=== PATIENT | female | born 1990 | race Caucasian/White ===

== ENCOUNTER 2017-09-02 19:59 | Inpatient (IN) | payer OTHER ==
[~2017-09-02] VITALS: Ht 160 cm; Wt 69.1 kg
[2017-09-02 20:30] VITALS: BP 130/74
[2017-09-02] MEDS ORDERED: PREN1TAB60 PO (21:04)
[2017-09-02] MEDS ORDERED: folic acid PO (21:04)
[2017-09-02 21:11] VITALS: BP 130/74
[2017-09-02 21:59] LABS: AMNI OBC PASS; AMNISURE POSITIVE (NEGATIVE)
[2017-09-02] MEDS ORDERED: AMPICILLIN 2 GM in SODIUM CHLORIDE 0.9% 100 ML IVPB STA (22:07)
[2017-09-02] MEDS ORDERED: OXYTOCIN 30U/ 0.9% NaCL 500ML 500 ML IV ONE (22:07)
[2017-09-02] MEDS ORDERED: ONDANSETRON 2MG/ML, 2ML IVPush PRN (22:30)
[2017-09-02] MEDS ORDERED: CALCIUM CARBONATE 500 MG TAB.CHEW PO PRN (22:30)
[2017-09-02] MEDS ORDERED: FENTANYL PF 100 MCG/2ML IV PRN (22:30)
[2017-09-02] MEDS ORDERED: FENTANYL PF 100 MCG/2ML IVPush PRN (22:30)
[2017-09-02 22:38] LABS: HEMATOCRIT 38.4 % (34.6-47.8); HEMOGLOBIN 13.1 g/dL (11.7-16.4); WHITE BLOOD COUNT 16.6 x10^3/uL (3.4-10)
[2017-09-02] MEDS: LACTATED RINGERS 1,000 ML IV SCH (22:52)
[2017-09-03] MEDS ORDERED: OXYTOCIN 30U/ 0.9% NaCL 500ML 500 ML IV PRN (00:12)
[2017-09-03] MEDS ORDERED: OXYTOCIN 30U/ 0.9% NaCL 500ML 500 ML ONE ×2 (00:30→23:25)
[2017-09-03] MEDS ORDERED: LIDOCAINE 1%, 20ML ONE ×2 (00:30→13:05)
[2017-09-03] MEDS ORDERED: MISOPROSTOL 200 MCG TABLET ONE (00:31)
[2017-09-03] MEDS: AMPICILLIN 1 GM in SODIUM CHLORIDE 0.9% 50 ML IVPB SCH ×4 (03:30→19:42)
[2017-09-03] MEDS: D5%-LACTATED RINGERS 1,000 ML IV SCH ×2 (06:07→18:22)
[2017-09-03 07:39] VITALS: BP 125/66
[2017-09-03] MEDS ORDERED: FENTANYL/BUPIV./NS/PF 250 ML EPIDCONT SCH ×4 (12:15→18:32)
[2017-09-03] MEDS ORDERED: LACTATED RINGERS 1,000 ML IV SCH ×3 (12:15→18:31)
[2017-09-03] MEDS ORDERED: LACTATED RINGERS 1,000 ML IVBOLUS PRN ×4 (12:30→19:00)
[2017-09-03] MEDS ORDERED: FENTANYL/BUPIV./NS/PF 250 ML EPIDCONT ONE (13:03)
[2017-09-03] MEDS: LACTATED RINGERS 1,000 ML IV SCH ×2 (17:51→18:32)
[2017-09-03] MEDS ORDERED: NALOXONE 0.4 MG/ML, 1ML IVPush PRN (18:30)
[2017-09-03] MEDS ORDERED: EPHEDRINE 50 MG/ML, 1ML IVPush PRN (18:30)
[2017-09-03] MEDS ORDERED: LACTATED RINGERS 1,000 ML INTUTE PRN (19:30)
[2017-09-03] MEDS ORDERED: LACTATED RINGERS 1,000 ML INTUTE SCH (19:30)
[2017-09-03] MEDS ORDERED: ONDANSETRON 2MG/ML, 2ML ONE (21:17)
[2017-09-03] MEDS ORDERED: OXYcodone/APAP 5/325MG TABLET PO PRN (22:00)
[2017-09-03] MEDS ORDERED: MISOPROSTOL 200 MCG TABLET PR PRN (22:00)
[2017-09-03] MEDS ORDERED: ONDANSETRON 2MG/ML, 2ML IV PRN (22:00)
[2017-09-03] MEDS ORDERED: OXYcodone/APAP 5/325MG TABLET ONE (23:15)
[2017-09-03] MEDS: OXYTOCIN 30U/ 0.9% NaCL 500ML 500 ML IV SCH (23:27)
[2017-09-04 01:45] VITALS: BP 117/70
[2017-09-04] MEDS: LACTATED RINGERS 1,000 ML IV SCH ×2 (02:32→10:32)
[2017-09-04 05:20] VITALS: BP 112/68
[2017-09-04] MEDS: OXYcodone/APAP 5/325MG TABLET PO PRN ×3 (05:26→20:13)
[2017-09-04] MEDS: IBUPROFEN 600 MG TABLET PO PRN ×3 (05:26→20:14)
[2017-09-04 07:20] LABS: HEMATOCRIT 32.6 % (34.6-47.8); HEMOGLOBIN 11.1 g/dL (11.7-16.4); WHITE BLOOD COUNT 23.5 x10^3/uL (3.4-10)
[2017-09-04] MEDS: OXYTOCIN 30U/ 0.9% NaCL 500ML 500 ML IV SCH ×2 (07:34→17:34)
[2017-09-04 07:45] LABS: DIFF TOTAL CELLS COUNTED 100 CELL DIFF
[2017-09-04 08:10] LABS: HYPOCHROMIA 1+; VERIFY COUNTS? YES
[2017-09-04 08:15] VITALS: BP 102/57
[2017-09-04] MEDS: DOCUSATE 100 MG CAPSULE PO PRN ×2 (11:45→20:14)
[2017-09-04] MEDS: PRENATAL VIT/IRON/FA 1 EACH TABLET PO SCH (11:45)
[2017-09-04 20:00] VITALS: BP 113/73
[2017-09-04] MEDS ORDERED: IBUP-1222 PO (22:12)
[2017-09-04] MEDS ORDERED: OXYC-302 PO (22:12)
[2017-09-05] MEDS: IBUPROFEN 600 MG TABLET PO PRN ×2 (02:48→21:01)
[2017-09-05] MEDS: OXYcodone/APAP 5/325MG TABLET PO PRN ×4 (02:48→21:01)
[2017-09-05 07:53] VITALS: BP 114/69
[2017-09-05] MEDS: DOCUSATE 100 MG CAPSULE PO PRN ×2 (09:25→21:00)
[2017-09-05] MEDS: PRENATAL VIT/IRON/FA 1 EACH TABLET PO SCH (09:25)
[2017-09-05 20:15] VITALS: BP 118/78
== END 2017-09-05 22:44 | disposition home or self-care (01) | DRG 775 ==
LOC: LDOP 19:59 → LDIP 22:15 → 2NW 09-04 01:30
PROVIDERS: ADMIT Obstetrics & Gynecology; ATTEND Obstetrics & Gynecology
PROC: 10E0XZZ Delivery of Products of Conception, External Approach (ICD-10-PCS; principal; 2017-09-02)
PROC: 3E0P3VZ Introduction of Hormone into Female Reproductive, Percutaneous Approach (ICD-10-PCS; 2017-09-02)
PROC: 0W8NXZZ Division of Female Perineum, External Approach (ICD-10-PCS; 2017-09-02)
PROC: 3E0R3BZ Introduction of Anesthetic Agent into Spinal Canal, Percutaneous Approach (ICD-10-PCS; 2017-09-02)
PROC: 00HU33Z Insertion of Infusion Device into Spinal Canal, Percutaneous Approach (ICD-10-PCS; 2017-09-02)
PROC: 0HQ9XZZ Repair Perineum Skin, External Approach (ICD-10-PCS; 2017-09-02)
DX: O69.81X0 Labor and delivery complicated by cord around neck, without compression, not applicable or unspecified (principal); O70.9 Perineal laceration during delivery, unspecified; Z3A.38 38 weeks gestation of pregnancy; Z37.0 Single live birth
CPT/HCPCS: 36415; 84112; 85025; 86850; 86900; 89060; J0290; J2405; J3490; J2590; J7120; J7121; Q0114

== ENCOUNTER 2020-01-12 08:25 | Emergency (ER) | payer OTHER ==
[~2020-01-12] VITALS: Ht 154.9 cm; Wt 66.8 kg
[~2020-01-12 08:25] MED LIST: IBUP-1222 PO; OXYC-302 PO; PREN1TAB60 PO; folic acid PO
--- NOTE | 2020-01-12 08:40 | NUR ---
PT BROUGHT BACK FROM TRIAGE WITH CHIEF COMPLAINT OF ABD PAIN AND BILAT FLANK PAIN WHICH SUDDENLY STARTED AT 5 AM. PT STATES SHE IS 8 WEEKS , DENIES VAGINAL BLEEDING/DISCHARGE.
[2020-01-12] MEDS ORDERED: MORPHINE SULFATE 4 MG/ML, 1ML ONE (08:57)
[2020-01-12] MEDS: MORPHINE SULFATE 4 MG/ML, 1ML IVPush PRN ×2 (09:00→09:58)
[2020-01-12 09:03] LABS: MEAN CORPUSCULAR HEMOGLOBIN 32.6 pg (27.0-34.8); MEAN CORPUSCULAR HGB CONC 33.6 g/dL (32.4-35.8); MEAN CORPUSCULAR VOLUME 97.1 fL (80-100); MEAN PLATELET VOLUME 8.7 fL (7.4-10.4); PLATELET COUNT 339 x10^3/uL (130-400); RED BLOOD COUNT 4.21 x10^6/uL (3.82-5.3); RED CELL DISTRIBUTION WIDTH 12.6 % (9.6-15.2)
[2020-01-12 09:16] LABS: ALANINE AMINOTRANSFERASE 22 U/L (12-78); ALBUMIN 3.8 g/dL (3.4-5.0); ANION GAP 10 mmol/L (5-15); CALCIUM 8.9 mg/dL (8.5-10.1); CHLORIDE 106 mmol/L (98-107); CREATININE 0.56 mg/dL (0.55-1.02)
[2020-01-12 09:19] LABS: BASOPHILS # (AUTO) 0.01 x10^3/uL (0-0.1); BASOPHILS % (AUTO) 0 % (0-1); EOSINOPHILS # (AUTO) 0.07 x10^3/uL (0-0.4); EOSINOPHILS % (AUTO) 0 % (1-7); LYMPHOCYTES # (AUTO) 1.53 x10^3/uL (1-3.4); LYMPHOCYTES % (AUTO) 8 % (22-44); MD SCAN; MONOCYTES # (AUTO) 0.57 x10^3/uL (0.2-0.8); MONOCYTES % (AUTO) 3 % (2-9); NEUTROPHILS # (AUTO) 17.57 x10^3/uL (1.8-6.8); NEUTROPHILS % (AUTO) 89 % (42-75)
--- NOTE | 2020-01-12 09:27 | NUR ---
ULTRA SOUND AT BEDSIDE
[2020-01-12 09:34] LABS: ALKALINE PHOSPHATASE 87 U/L (45-117); BILIRUBIN,TOTAL 0.6 mg/dL (0.2-1.0); TOTAL PROTEIN 7.7 g/dL (6.4-8.2)
[2020-01-12 10:11] LABS: MICROSCOPIC NOT IND
[2020-01-12 10:14] LABS: CULTURE INDICATED? NO
--- NOTE | 2020-01-12 10:32 | NUR ---
ERMD LAW AT BEDSIDE TO DISCUSS POC
[2020-01-12] MEDS ORDERED: CEFTRIAXONE PMX 1GM/50ML 0 ML ONE (11:02)
--- NOTE | 2020-01-12 11:30 | NUR ---
PT RESTING IN BED, CALL LIGHT IN REACH
[2020-01-12] MEDS ORDERED: CEFTRIAXONE PMX 1GM/50ML 50 ML IV ONE (12:00)
--- NOTE | 2020-01-12 12:31 | NUR ---
PT TO MRI
[2020-01-12 13:30] VITALS: BP 114/71
--- NOTE | 2020-01-12 14:06 | NUR ---
PT BACK FROM IMAGING
== END 2020-01-12 14:53 | disposition home or self-care (01) ==
LOC: ED 08:37
DX: O26.891 Other specified pregnancy related conditions, first trimester (principal); R10.9 Unspecified abdominal pain; D72.829 Elevated white blood cell count, unspecified; R11.0 Nausea; Z3A.08 8 weeks gestation of pregnancy
CPT/HCPCS: 36415; 74181; 76700; 76815; 80053; 81003; 84702; 85025; 96374; 96375; 99285; J2270